=== PATIENT | female | born 1995 | race Caucasian/White ===

== ENCOUNTER 2018-08-19 20:53 | Emergency (ER) | payer OTHER ==
--- NOTE | 2018-08-19 21:16 | ED.PDOC ---
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 Timing/Duration: 7-24 hours Severity/Quality: moderate, pressure Location: central Chest Pain Radiation: no radiation Activities at Onset: activity Prior Chest Pain/Cardiac Workup: no prior chest pain, no prior cardiac workup Improving Factors: nothing Worsening Factors: nothing Associated Symptoms: denies symptoms Allergies/Adverse Reactions: Allergies peanuts Allergy (Uncoded 08/19/18 21:12) Review of Systems - Review of Systems Constitutional: States: no symptoms reported EENTM: States: no symptoms reported Respiratory: States: no symptoms reported Cardiology: States: no symptoms reported Gastrointestinal/Abdominal: States: no symptoms reported Genitourinary: States: no symptoms reported Musculoskeletal: States: no symptoms reported Skin: States: no symptoms reported Neurological: States: no symptoms reported All other Systems: Reviewed and Negative, No Change from Baseline Past Medical History (General) - Patient Medical History Hx Seizures: No Hx Asthma: No Surgical History: tonsillectomy - Social History Hx Tobacco Use: No Hx Alcohol Use: Yes - occasional Hx Substance Use: No Hx Substance Use Treatment: No - Female History Patient is a Female of Child Bearing Age (10 -59 yrs old): Yes Hx Last Menstrual Period: 07/21/18 Patient : No Family Medical History - Family History Father Family History: No Known Hx Family;Other: mom-multiple sclerosis Physical Exam - Physical Exam General Appearance: Alert, Comfortable, No apparent distress Eyes, Ears, Nose, Throat Exam: PERRL/EOMI, normal ENT inspection, TMs normal, pharynx normal Neck: non-tender, full range of motion, supple, normal inspection Respiratory: chest non-tender, lungs clear, normal breath sounds, no respiratory distress Cardiovascular/Chest: normal peripheral pulses, regular rate, rhythm, no murmur Peripheral Pulses: radial,right: 2+, radial,left: 2+ Gastrointestinal/Abdominal: non tender, soft, no organomegaly Neurologic: alert, oriented x 3 Skin Exam: normal color, warm/dry Lymphatic: no adenopathy Progress - Progress Progress: 08/19/18 23:36 08/19/18 21:12 IV Care:Saline Lock per Protoc QSHIFT Telemetry .ONCE EKG Stat Pulse Ox Stat 08/19/18 21:13 EKG Assessment ONCE Pulse Oximetry Assessment DAILY 08/19/18 22:24 Urine Culture Stat 08/19/18 22:54 TROPONIN-I Stat Laboratory Results - last 24 hr 08/19/18 08/19/18 08/19/18 19:10 19:10 19:40 WBC 8.4 RBC 4.43 Hgb 14.2 Hct 40.8 MCV 92.0 MCH 31.9 H MCHC 34.7 RDW 12.7 Plt Count 217 MPV 7.7 Absolute Neuts (auto) 4.80 Absolute Lymphs (auto) 2.80 Absolute Monos (auto) 0.70 Absolute Eos (auto) 0.00 Absolute Basos (auto) 0.00 Neutrophils % 57.3 Lymphocytes % 33.9 Monocytes % 8.0 Eosinophils % 0.3 L Basophils % 0.5 PT 10.1 INR 1.01 PTT (SP) 24.0 D-Dimer, Quantitative 0.24 Sodium 134 L Potassium 3.5 L Chloride 102 Carbon Dioxide 20 L Anion Gap 15.5 BUN 16 Creatinine 0.70 BUN/Creatinine Ratio 22.9 H Random Glucose 94 Serum Osmolality 269.2 L Calcium 9.3 Magnesium 2.0 Creatine Kinase 159 H CK-MB (CK-2) 3.0 CK-MB (CK-2) % Not Reportable Troponin I < 0.02 TSH Serum HCG, Qual Negative Urine Color Urine Appearance Urine pH Ur Specific [place] Urine Protein Urine Glucose (UA) Urine Ketones Urine Blood Urine Nitrite Urine Bilirubin Urine Urobilinogen Ur Leukocyte Esterase Urine RBC Urine WBC Ur Epithelial Cells Amorphous Sediment Urine Bacteria Urine Mucus Urine Opiates Screen Urine Barbiturates Ur Phencyclidine Scrn U Amphetamin/Meth Scrn U Benzodiazepines Scrn U Cocaine Metab Screen U Cannabinoids Screen 08/19/18 08/19/18 08/19/18 21:30 22:24 22:25 WBC RBC Hgb Hct MCV MCH MCHC RDW Plt Count MPV Absolute Neuts (auto) Absolute Lymphs (auto) Absolute Monos (auto) Absolute Eos (auto) Absolute Basos (auto) Neutrophils % Lymphocytes % Monocytes % Eosinophils % Basophils % PT INR PTT (SP) D-Dimer, Quantitative Sodium Potassium Chloride Carbon Dioxide Anion Gap BUN Creatinine BUN/Creatinine Ratio Random Glucose Serum Osmolality Calcium Magnesium Creatine Kinase CK-MB (CK-2) CK-MB (CK-2) % Troponin I TSH 1.16 Serum HCG, Qual Urine Color Yellow Urine Appearance Cloudy Urine pH 7.0 Ur Specific [place] 1.020 Urine Protein Negative Urine Glucose (UA) Negative Urine Ketones Trace Urine Blood Trace-intact H Urine Nitrite Negative Urine Bilirubin Negative Urine Urobilinogen 0.2 Ur Leukocyte Esterase Small H Urine RBC 0 Urine WBC 0 Ur Epithelial Cells 40-50 Amorphous Sediment 3+ Urine Bacteria 2+ H Urine Mucus Small Urine Opiates Screen Negative Urine Barbiturates Negative Ur Phencyclidine Scrn Negative U Amphetamin/Meth Scrn Negative U Benzodiazepines Scrn Negative U Cocaine Metab Screen Negative U Cannabinoids Screen Negative - Results/Orders Results/Orders: Laboratory Tests 08/19/18 08/19/18 08/19/18 19:10 19:10 19:40 WBC 8.4 RBC 4.43 Hgb 14.2 Hct 40.8 MCV 92.0 MCH 31.9 H MCHC 34.7 RDW 12.7 Plt Count 217 MPV 7.7 Absolute Neuts (auto) 4.80 Absolute Lymphs (auto) 2.80 Absolute Monos (auto) 0.70 Absolute Eos (auto) 0.00 Absolute Basos (auto) 0.00 Neutrophils % 57.3 Lymphocytes % 33.9 Monocytes % 8.0 Eosinophils % 0.3 L Basophils % 0.5 PT 10.1 INR 1.01 PTT (SP) 24.0 D-Dimer, Quantitative 0.24 Sodium 134 L Potassium 3.5 L Chloride 102 Carbon Dioxide 20 L Anion Gap 15.5 BUN 16 Creatinine 0.70 BUN/Creatinine Ratio 22.9 H Random Glucose 94 Serum Osmolality 269.2 L Calcium 9.3 Magnesium 2.0 Creatine Kinase 159 H CK-MB (CK-2) 3.0 CK-MB (CK-2) % Not Reportable Troponin I < 0.02 TSH Serum HCG, Qual Negative Urine Color Urine Appearance Urine pH Ur Specific [place] Urine Protein Urine Glucose (UA) Urine Ketones Urine Blood Urine Nitrite Urine Bilirubin Urine Urobilinogen Ur Leukocyte Esterase Urine RBC Urine WBC Ur Epithelial Cells Amorphous Sediment Urine Bacteria Urine Mucus Urine Opiates Screen Urine Barbiturates Ur Phencyclidine Scrn U Amphetamin/Meth Scrn U Benzodiazepines Scrn U Cocaine Metab Screen U Cannabinoids Screen 08/19/18 08/19/18 08/19/18 21:30 22:24 22:25 WBC RBC Hgb Hct MCV MCH MCHC RDW Plt Count MPV Absolute Neuts (auto) Absolute Lymphs (auto) Absolute Monos (auto) Absolute Eos (auto) Absolute Basos (auto) Neutrophils % Lymphocytes % Monocytes % Eosinophils % Basophils % PT INR PTT (SP) D-Dimer, Quantitative Sodium Potassium Chloride Carbon Dioxide Anion Gap BUN Creatinine BUN/Creatinine Ratio Random Glucose Serum Osmolality Calcium Magnesium Creatine Kinase CK-MB (CK-2) CK-MB (CK-2) % Troponin I TSH 1.16 Serum HCG, Qual Urine Color Yellow Urine Appearance Cloudy Urine pH 7.0 Ur Specific [place] 1.020 Urine Protein Negative Urine Glucose (UA) Negative Urine Ketones Trace Urine Blood Trace-intact H Urine Nitrite Negative Urine Bilirubin Negative Urine Urobilinogen 0.2 Ur Leukocyte Esterase Small H Urine RBC 0 Urine WBC 0 Ur Epithelial Cells 40-50 Amorphous Sediment 3+ Urine Bacteria 2+ H Urine Mucus Small Urine Opiates Screen Negative Urine Barbiturates Negative Ur Phencyclidine Scrn Negative U Amphetamin/Meth Scrn Negative U Benzodiazepines Scrn Negative U Cocaine Metab Screen Negative U Cannabinoids Screen Negative 08/19/18 22:54 WBC RBC Hgb Hct MCV MCH MCHC RDW Plt Count MPV Absolute Neuts (auto) Absolute Lymphs (auto) Absolute Monos (auto) Absolute Eos (auto) Absolute Basos (auto) Neutrophils % Lymphocytes % Monocytes % Eosinophils % Basophils % PT INR PTT (SP) D-Dimer, Quantitative Sodium Potassium Chloride Carbon Dioxide Anion Gap BUN Creatinine BUN/Creatinine Ratio Random Glucose Serum Osmolality Calcium Magnesium Creatine Kinase CK-MB (CK-2) CK-MB (CK-2) % Troponin I < 0.02 TSH Serum HCG, Qual Urine Color Urine Appearance Urine pH Ur Specific [place] Urine Protein Urine Glucose (UA) Urine Ketones Urine Blood Urine Nitrite Urine Bilirubin Urine Urobilinogen Ur Leukocyte Esterase Urine RBC Urine WBC Ur Epithelial Cells Amorphous Sediment Urine Bacteria Urine Mucus Urine Opiates Screen Urine Barbiturates Ur Phencyclidine Scrn U Amphetamin/Meth Scrn U Benzodiazepines Scrn U Cocaine Metab Screen U Cannabinoids Screen Discuss all test results with patient. - EKG/XRAY/CT EKG: Sinus, no ST T wave changes Comments: hr-75 Departure - Departure Clinical Impression: Electrolyte imbalance Chest pain Qualifiers: Chest pain type: unspecified Qualified Code(s): R07.9 - Chest pain, unspecified Time of Disposition: 00:40 Disposition: Discharge to Home or Self Care Condition: Fair Departure Forms: ED Discharge - Pt. Copy, Patient Portal Self Enrollment Instructions: DI for Chest Pain Diet: other - drink extra fluids preferably Gatorade Referrals: Mike Giron III, MD [Primary Care Provider] - 1-2 Weeks Additional Instructions: Return to emergency room as needed
[2018-08-19] MEDS ORDERED: LACTATED RINGERS 1,000 ML IVS ONE (21:19)
[2018-08-19] MEDS ORDERED: ASPIRIN (CHEWABLE) 81 MG TAB PO ONE (21:33)
--- NOTE | 2018-08-19 22:24 | RAD ---
EXAM: AP CHEST RADIOGRAPH CLINICAL INDICATION: Acute chest pain. Dyspnea. COMPARISON: No comparisons are available. FINDINGS: Cardiac size and pulmonary vasculature are normal. Lungs are clear. No pleural effusions. No pneumothorax, pneumomediastinum or free peritoneal gas. No hilar or mediastinal lymphadenopathy. No mediastinal widening. Bones are intact on this single view. IMPRESSION: Normal portable AP chest radiograph. Electronically signed by: Avtar Prajapati MD 08/19/2018 10:03 PM CDT
[2018-08-19 22:34] VITALS: TEMP 98.1
[2018-08-19] MEDS ORDERED: LORazepam 0.5 MG TAB PO ONE (23:35)
[2018-08-20] VITALS: O2SAT 100
[2018-08-20] MEDS ORDERED: SUCRALFATE 1 GM/10 ML 1 GM UD PO ONE (00:44)
[2018-08-20] MEDS ORDERED: PANTOPRAZOLE SODIUM TAB 40 MG PO ONE (00:44)
[2018-08-20 01:02] VITALS: BP 115/72
== END 2018-08-20 01:01 | disposition home or self-care (01) ==
LOC: ER 20:53
DX: R07.9 Chest pain, unspecified (principal); E87.8 Other disorders of electrolyte and fluid balance, not elsewhere classified
CPT/HCPCS: 36415; 71045; 80048; 80307; 81001; 82550; 82553; 84443; 84484; 84703; 85025; 85379; 85610; 85730; 87086; 93005; J2060; J7120